=== PATIENT | female | born 1945 | race Caucasian/White ===

== ENCOUNTER 2021-02-04 16:41 | Emergency (ER) | payer BC, SELFPAY ==
--- NOTE | ~2021-02-04 | CT_ITS ---
EXAMINATION: CT HEAD WITHOUT CONTRAST CT CERVICAL SPINE WITHOUT CONTRAST CLINICAL INFORMATION: Fall COMPARISON: CT head dated 11/02/2018 TECHNIQUE: Multidetector CT imaging of the head and cervical spine was performed without the use of intravenous contrast. Multiplanar reformats are reviewed. This CT examination was performed using dose optimization techniques as appropriate, variously including the following: *Automated exposure control *Adjustment of mA and/or kV according to patient size (this includes techniques or standardized protocols for targeted exams where dose is matched to indication/reason for exam; i.e. extremities or head) *Use of iterative reconstruction technique DLP: 976 mGy-cm. FINDINGS: There is acute subarachnoid hemorrhage within the right suprasellar cistern extending into the right MCA cistern No territorial infarction. No abnormal mass effect or midline shift is seen. Chowdhury to white matter differentiation is well preserved. No extra-axial fluid collections are identified. The ventricles are normal in size. There is no abnormal attenuation within the brain parenchyma. Large right parietal-occipital subgaleal hematoma. Underlying calvarium intact. Bilateral medial maxillary antrostomies and resection of the floor of the ethmoid air cells bilaterally. Chronic mucoperiosteal thickening of the left maxillary sinus and bilateral sphenoid chambers. Mastoid air cells are clear. Atlantooccipital alignment is maintained. The vertebral bodies and posterior elements align normally. No acute fracture or subluxation. Vertebral body heights are maintained. Small endplate osteophytes present throughout cervical spine. There is slight anterolisthesis of C3 on C4 and C4 on C5 related to hypertrophic facet arthropathy on the right and C2-C5. There is levoconvex lumbar curvature centered at C3 which may be positional in part degenerative in nature. The paraspinal soft tissues are unremarkable. The imaged lung apices are clear CT/CT cervical spine wo con IMPRESSION: * Subarachnoid hemorrhage present within the right suprasellar cistern and MCA cistern extending into the inferior sylvian fissure. * No cervical spine fracture or malalignment. This critical result was discussed with Dinora ANDERSEN at 02/04/2021 6:54 PM and it was ascertained that the content and urgency of the report was understood at the time of direct communication.
[2021-02-04 16:55] VITALS: BP 153/70; BP 153/77; PULSE 70; RESP 18; TEMP 36.6; O2SAT 100; O2SAT 98
--- NOTE | 2021-02-04 17:33 | ED_ITS ---
HPI - Fall General Chief Complaint: Fall Stated Complaint: FALL/ LAC ON HEAD Time Seen by Provider: 02/04/21 17:09 Source: patient and EMS Mode of arrival: EMS Limitations: no limitations History of Present Illness HPI Narrative: 76-year-old female with a past medical history of hypertension, depression, asthma, sinus conditions, arthritis, chronic back/hip and bilateral knee pain status post bilateral total knee replacement currently uses crutches at home presenting to the ED via EMS with C-collar in place after she had a fall where she turned too quickly with her crutches at home and she lost her balance fell backwards hitting her head on the metal piece of the back of the recliner chair no loss of consciousness or prolonged down time per patient. She denies being on any blood thinners. She reports associated right shoulder pain although reports she was having shoulder pain prior to the fall. Also reports right knee pain although she was having right knee pain prior to the fall. She reports the right shoulder and right knee pain are worse after the fall. She denies any dizziness, headaches, change in vision, neck pain/stiffness/injury, chest pain or shortness of breath, dyspnea exertion, orthopnea, palpitations, lower extremity edema or calf tenderness, recent travel or sick contacts, naus ea/vomiting/diarrhea constipation or abdominal pain or any other symptoms complaints or concerns at this time. Reports that she is up-to-date on tetanus. complaint: fall Onset (ago): minute(s) (Prior to arrival) Fall from: standing Fall witnessed: no Place fall occurred: home Loss of consciousness: none Prolonged down time: no Symptoms prior to fall: none Context: tripped/slipped Location of injury: head Location of injury - extremities: right: shoulder and knee Severity: moderate Quality: aching Associated symptoms (after fall): denies Related Data Allergies Allergy/AdvReac Type Severity Reaction Status Date / Time Penicillins Allergy Severe SWELLING/IT Unverified 11/04/19 14:34 ELIDIA vancomycin [Vancomycin] Allergy Severe SWELLING/IT Unverified 11/04/19 14:34 ELIDIA/RASH/ HIVES cefazolin [CEFAZOLIN] Allergy Unknown ERYTHEMA Unverified 11/04/19 14:34 MULTIFORMS naproxen [From NAPROSYN] Allergy Unknown HIVES Unverified 11/04/19 14:34 oxacillin [OXACILLIN] Allergy Unknown RASH, Unverified 11/04/19 14:34 BLISTERS Review of Systems Review of Systems: Constitutional : + fall/trauma, No Weight loss, No Fever, No Chills, ENT/Mouth : No Hearing loss, No Ear Pain, No Nasal Congestion, No Sinus Pain, No Hoarseness, No sore throat, No Rhinorrhea, No Swallowing Difficulty Cardiovascular : No Chest Pain, No SOB Respiratory : No Cough, No Dyspnea Gastrointestinal : No Nausea, No Vomiting, No Diarrhea, No abdominal Pain, No Hematochezia, No Melena Genitourinary : No Dysuria, No Urinary Frequency, No Hematuria, No Urinary or Bowel Incontinence/retention Musculoskeletal : + right shoulder/knee pain, No Neck pain, No Back pain, No joint stiffness, No joint swelling Skin : + laceration to posterior scalp, No Skin Lesions, No rash or signs of infection Neuro : + head injury c fall, No Tingling to b/l arms/legs, No Weakness, No radiation, No Numbness, No headache, no loss of bowel or bladder incontinence, no saddle anesthesia Denies history of IV drug usage. Yes all other systems are reviewed and are negative [facility] Past Medical History Attestation statement: The following information was validated with the patient. Surgical History History of foot surgery History of total bilateral knee replacement Social History Social History Smoked in Last 30 Days: No Use of substances other than those prescribed or required for medical reasons: No Advance Directives: No Advance Directives Information Provided: No Physical Exam Vital Signs: Vital Signs: Last Vital Signs Temp 97.8 F 02/04/21 16:55 Pulse 67 02/04/21 19:00 Resp 18 02/04/21 19:00 BP 145/65 H 02/04/21 19:00 Pulse Ox 94 02/04/21 19:00 BMI result Body Mass Index 30.0 vital signs have been reviewed as normal and appeared to be correct. Blood pressure 153/70. Heart rate normal. Respiration rate normal. Temperature normal. Oxygen saturation normal. Appearance: Alert. Oriented X3. No acute distress. Head: Normal external exam. Normocephalic. Atraumatic. Eyes: PERRLA. EOMI. Conjunctiva and sclera normal. Eyelids normal. ENT: No septal hematoma noted. No hemotympanum noted. Pharynx normal. Uvula midline. Moist mucous membranes. No trismus noted. No drooling noted. No muffled voice noted. Neck: Normal inspection. Neck supple. No adenopathy. Thyroid Normal. Trachea midline. No meningeal signs. No neck mass noted. Patient with C-collar in place. No mid cervical tenderness step-offs or deformities noted. Patient denies any tenderness to the paracervical musculature. Patient neuro intact bilaterally and distally on all 4 extremities. Reflexes intact bilaterally and distally in all 4 extremities. No rashes/lesion/induration/fluctuance or signs of infection noted. No edema noted. Although due to patient having a fall with head injury and laceration will not remove C-collar at this time. CVS: Normal heart rate and rhythm. Heart sound normal. No murmurs noted. Pulses normal throughout. Respiratory: No respiratory distress. Painless inspiration. Breath sounds normal. No wheezes/rales/rhonchi noted. Chest nontender. No accessory muscle usage noted or decreased air movement noted. No signs of trauma. Back: Full range of motion noted. No obvious deformities, or edema. Full ROM in back and lower extremities. Abdomen: Soft and nontender. Nondistended. Not rigid. Bowel sounds in all 4 quadrants. No organomegaly noted. No signs of trauma noted. Skin: Skin warm and dry. Normal skin color. Normal skin turgor. No rashes/lesions/lacerations noted. Extremities: Patient mild tenderness to palpation to the right shoulder with limited range of motion and mild tenderness to the right knee with limited range of motion patient reports that this is chronic no obvious ligamentous or tendon injury. No lower extremity edema or calf tenderness is noted. No upper extremity edema noted. Patient reports she chronically cannot bend her left knee and is at baseline at this time Otherwise all other exhibit normal range of motion and nontender. Neuro: Oriented X 3. No motor deficit. No sensory deficit. Reflexes normal. Moving all extremities. No focal motor deficits. Cranial nerves II-XI intact bilaterally. Facial strength normal. Normal cognition. Speech normal. Strength 5/5 throughout. No pronator drift. No tremor noted. No fasciculations noted. No rigidity noted. Muscle tone normal throughout. No asterixis noted. Rxzwne-km-lybd test normal. Heel to mayers test normal. Rapid alternating movement upper extremity normal. Rapid alternating movement lower extremity normal. Hand drop from overhead Misses face. NIHSS score 0. Vascular: +2 radial pulses bilaterally. +2 two pedal pulses bilaterally. No cyanosis noted to upper and lower extremity nails. Course Course Course Narrative: 19pm - CT scan of brain without contrast revealed subarachnoid hemorrhage present within the right suprasellar cistern and MCA cistern extending into the inferior sylvian fissure. No cervical spine fractures or malalignment. - therefore at this time I discussed this patient with [facility] and [facility] accepted transfer ED to ED Dr. Patterson accepted transfer. At this time GCS is 15 patient alert and oriented x3. No focal neuro deficits are noted. She is aware that she is being transferred to [facility] she is a Full Code. Will continue to monitor until transfer. Dr. Garcia's at bedside attempting to put sutures in her right posterior scalp laceration. Procedures Laceration Laceration 1: Site: scalp Side (If applicable): right Size (cm): 5 Description: irregular (Three aravind were also utilized) Depth: involves muscle layer Local Anesthetic: lidocaine 1% and with epi Amount of anesthesia used (mL): 10 Pre-repair: wound explored, irrigated extensively, deep structures intact and wound margins revised Skin layer closed with: nylon Size (cm): 3-0 Number of sutures: 4 MDM - Fall MDM Narrative Medical decision making narrative: 17:20pm - 76-year-old female presenting to the ED via EMS after she had a mechanical fall with her crutches that she chronically uses due to bilateral total knee replacements not on any blood thinners with head injury/laceration and C-collar in place. Complaining of pain to the posterior aspect of her head, right shoulder right knee otherwise denies any other symptoms. Patient up-to-date on tetanus. On exam she is alert and oriented x3. Not in any acute distress. No focal neural deficits are noted. NIHSS score 0 non disabling symptoms at this time. Not a tPA candidate. Lungs clear to auscultation. CV RRR. Abdomen is soft nontender. Plan: Basic labs, CT scan of brain/cervical spine, x-ray of right shoulder and right knee. Provide 975 mg of Tylenol then re-evaluate. Medical Records Attestation: I reviewed the patient's medical records. Lab Data Attestation: I reviewed the patient's lab results. Result diagrams: 02/04/21 18:13 02/04/21 18:13 Labs: Lab Results 02/04/21 02/04/21 02/04/21 Range/Units 18:13 18:13 18:13 WBC 3.6 L (4.8-10.8) X10*3/uL RBC 4.04 L (4.20-5.50) X10*6/uL Hgb 12.2 (12.0-16.0) g/dl Hct 38.4 (37.0-47.0) % MCV 95.0 (80.0-98.0) fL MCH 30.2 (27.0-33.0) pg MCHC 31.8 (31.0-35.0) g/dl RDW 13.2 (11.0-16.0) % Plt Count 156 L (160-400) X10*3/uL MPV 10.2 (9.4-12.3) fL Immature Gran % (Auto) 0.3 (0.0-0.4) % Neut % (Auto) 67.5 (45-73) % Lymph % (Auto) 19.5 L (20-40) % [place] % (Auto) 7.7 (2-11) % Eos % (Auto) 4.7 H (0-4) % Baso % (Auto) 0.3 (0-2) % Lymph # (Auto) 0.7 L (1.2-4.9) X10*3/uL [place] # (Auto) 0.3 (0.1-1.2) X10*3/uL Eos # (Auto) 0.2 (0.0-0.4) X10*3/uL Baso # (Auto) 0.0 (0.0-0.2) X10*3/uL Abs Immat Gran (auto) 0.01 (0.00-0.03) X10*3/uL Absolute Neuts (auto) 2.5 (2.0-8.3) x10*3/uL Absolute Nucleated RBC 0.000 (0.0-0.012) X10*3/uL Nucleated RBC % (auto) 0.0 (0.0-0.2) /100WBC Hold Purple Top SEE NOTE PT 11.8 (9.9-13.0) SEC INR 1.0 (0.9-1.1) Sodium (135-145) mmol/L Potassium (3.3-5.1) mmol/L Chloride (96-108) mmol/L Carbon Dioxide (22-29) mmol/L Anion Gap (12-20) BUN (9-16) mg/dL Creatinine (0.5-1.4) mg/dL Estim Creat Clear Calc Estimated GFR Random Glucose (60-115) mg/dL Calcium (8.4-10.2) mg/dL Magnesium (1.6-2.6) mg/dL Total Bilirubin (0.0-1.0) mg/dL AST (5-31) U/L ALT (0-31) U/L Alkaline Phosphatase (39-117) U/L Total Creatine Kinase (26-140) U/L Total Protein (6.5-8.0) g/dL Albumin (3.5-5.0) g/dL COVID-19 (DION) (Negative) COVID-19 Clin Com 02/04/21 02/04/21 02/04/21 Range/Units 18:13 18:13 19:01 WBC (4.8-10.8) X10*3/uL RBC (4.20-5.50) X10*6/uL Hgb (12.0-16.0) g/dl Hct (37.0-47.0) % MCV (80.0-98.0) fL MCH (27.0-33.0) pg MCHC (31.0-35.0) g/dl RDW (11.0-16.0) % Plt Count (160-400) X10*3/uL MPV (9.4-12.3) fL Immature Gran % (Auto) (0.0-0.4) % Neut % (Auto) (45-73) % Lymph % (Auto) (20-40) % [place] % (Auto) (2-11) % Eos % (Auto) (0-4) % Baso % (Auto) (0-2) % Lymph # (Auto) (1.2-4.9) X10*3/uL [place] # (Auto) (0.1-1.2) X10*3/uL Eos # (Auto) (0.0-0.4) X10*3/uL Baso # (Auto) (0.0-0.2) X10*3/uL Abs Immat Gran (auto) (0.00-0.03) X10*3/uL Absolute Neuts (auto) (2.0-8.3) x10*3/uL Absolute Nucleated RBC (0.0-0.012) X10*3/uL Nucleated RBC % (auto) (0.0-0.2) /100WBC Hold Purple Top PT (9.9-13.0) SEC INR (0.9-1.1) Sodium 139 (135-145) mmol/L Potassium 4.5 (3.3-5.1) mmol/L Chloride 104 (96-108) mmol/L Carbon Dioxide 26 (22-29) mmol/L Anion Gap 14 (12-20) BUN 33 H (9-16) mg/dL Creatinine 0.69 (0.5-1.4) mg/dL Estim Creat Clear Calc 69.5 Estimated GFR > 60 Random Glucose 92 (60-115) mg/dL Calcium 9.0 (8.4-10.2) mg/dL Magnesium 2.1 (1.6-2.6) mg/dL Total Bilirubin 0.5 (0.0-1.0) mg/dL AST 21 (5-31) U/L ALT 17 (0-31) U/L Alkaline Phosphatase 67 (39-117) U/L Total Creatine Kinase 115 (26-140) U/L Total Protein 6.8 (6.5-8.0) g/dL Albumin 3.9 (3.5-5.0) g/dL COVID-19 (DION) Negative (Negative) COVID-19 Clin Com See Note Imaging Data CT scan of brain/cervical spine without contrast: Attestation: I personally reviewed and interpreted this imaging study as follows: Radiologist's impression: FINDINGS: There is acute subarachnoid hemorrhage within the right suprasellar cistern extending into the right MCA cistern No territorial infarction. No abnormal mass effect or midline shift is seen. Chowdhury to white matter differentiation is well preserved. No extra-axial fluid collections are identified. The ventricles are normal in size. There is no abnormal attenuation within the brain parenchyma. Large right parietal-occipital subgaleal hematoma. Underlying calvarium intact. Bilateral medial maxillary antrostomies and resection of the floor of the ethmoid air cells bilaterally. Chronic mucoperiosteal thickening of the left maxillary sinus and bilateral sphenoid chambers. Mastoid air cells are clear. Atlantooccipital alignment is maintained. The vertebral bodies and posterior elements align normally. No acute fracture or subluxation. Vertebral body heights are maintained. Small endplate osteophytes present throughout cervical spine. There is slight anterolisthesis of C3 on C4 and C4 on C5 related to hypertrophic facet arthropathy on the right and C2-C5. There is levoconvex lumbar curvature centered at C3 which may be positional in part degenerative in nature. The paraspinal soft tissues are unremarkable. The imaged lung apices are clear ? CT/CT head/brain wo con IMPRESSION: *? Subarachnoid hemorrhage present within the right suprasellar cistern and MCA cistern extending into the inferior sylvian fissure. *? No cervical spine fracture or malalignment. ? This critical result was discussed with Dinora ANDERSEN at 02/04/2021 6:54 PM and it was ascertained that the content and urgency of the report was understood at the time of direct communication. Critical Care Time Critical Care Time Critical Care Time: Yes Total Critical Care Time: 60 Attestation: I personally attest to this time spent taking care of the patient Discharge Plan Discharge Clinical Impression: Subarachnoid hemorrhage, Fall, Head injury, Laceration of scalp Patient Disposition: [facility] Transfer Details: [facility] Dr. Patterson
[2021-02-04] MEDS: Acetaminophen 325 MG TABLET 975 MG PO (17:34)
[2021-02-04 18:18] LABS: Basophils Percent Auto 0.3 % (0-2); Eosinophils Absolute Auto 0.2 X10*3/uL (0.0-0.4); Eosinophils Percent Auto 4.7 % (0-4); Hematocrit 38.4 % (37.0-47.0); Hemoglobin 12.2 g/dl (12.0-16.0); Imm Gran Abs Auto 0.01 X10*3/uL (0.00-0.03); Imm Gran Pct Auto 0.3 % (0.0-0.4); Lymphocytes Absolute Auto 0.7 X10*3/uL (1.2-4.9); Lymphocytes Percent Auto 19.5 % (20-40); MANUAL DIFF FLAG NO; Mean Corpuscular HGB Conc 31.8 g/dl (31.0-35.0); Mean Corpuscular Hemoglobin 30.2 pg (27.0-33.0); Mean Platelet Volume 10.2 fL (9.4-12.3); Monocytes Absolute Auto 0.3 X10*3/uL (0.1-1.2); Monocytes Percent Auto 7.7 % (2-11); Neutrophils Absolute Auto 2.5 x10*3/uL (2.0-8.3); Neutrophils Percent Auto 67.5 % (45-73); Platelet Count 156 X10*3/uL (160-400); Red Blood Count 4.04 X10*6/uL (4.20-5.50); Red Cell Distribution Width 13.2 % (11.0-16.0); White Blood Count 3.6 X10*3/uL (4.8-10.8)
[2021-02-04 18:32] LABS: Prothrombin Time 11.8 SEC (9.9-13.0)
[2021-02-04 18:51] LABS: Alanine Aminotransferase 17 U/L (0-31); Albumin Level 3.9 g/dL (3.5-5.0); Alkaline Phosphatase 67 U/L (39-117); Anion Gap 14 (12-20); Aspartate Amino Transferase 21 U/L (5-31); Bilirubin Total 0.5 mg/dL (0.0-1.0); Blood Urea Nitrogen 33 mg/dL (9-16); Carbon Dioxide 26 mmol/L (22-29); Chloride 104 mmol/L (96-108); Creatinine Clr Calc Pharmacy 69.5; Estimated Glomerular Filt Rate > 60; Glucose Random 92 mg/dL (60-115); Magnesium 2.1 mg/dL (1.6-2.6); Potassium 4.5 mmol/L (3.3-5.1); Sodium 139 mmol/L (135-145); Total Protein 6.8 g/dL (6.5-8.0)
[2021-02-04 19:00] VITALS: BP 145/65; PULSE 67; RESP 18; O2SAT 94
[2021-02-04 19:22] LABS: COVID-19 Test Negative (Negative); IDNOW Serial# 9DD0AD1C
== END 2021-02-04 19:45 | disposition short-term general hospital (02) ==
PROVIDERS: Physician Assistant Medical; Emergency Provider Emergency Medicine; PCP Internal Medicine
DX: S06.6X0A Traumatic subarachnoid hemorrhage without loss of consciousness, initial encounter (principal); S01.01XA Laceration without foreign body of scalp, initial encounter; W01.190A Fall on same level from slipping, tripping and stumbling with subsequent striking against furniture, initial encounter; M25.511 Pain in right shoulder; M25.561 Pain in right knee; R40.2412 Glasgow coma scale score 13-15, at arrival to emergency department; Y93.89 Activity, other specified; Y92.019 Unspecified place in single-family (private) house as the place of occurrence of the external cause; Y99.9 Unspecified external cause status; Z96.653 Presence of artificial knee joint, bilateral; Z20.822 Contact with and (suspected) exposure to COVID-19
CPT/HCPCS: 12032; 36415; 70450; 72125; 80053; 82550; 83735; 85025; 85610; 87635; 99284; 99291